=== PATIENT | male | born 1955 | race Caucasian/White ===

== ENCOUNTER 2017-07-22 08:32 | Day surgery (SDC) | payer OTHER ==
[2017-07-22] MEDS ORDERED: LIDOCAINE 4% SOLUTION 50 ML BTL (10:55)
[2017-07-22] MEDS ORDERED: FENTAnyl 50 MCG/ML VIAL (11:54)
[2017-07-22] MEDS ORDERED: MIDAZOLAM 1 MG/ML 2 ML INJ ×2 (11:54)
== END 2017-07-22 16:43 | disposition home or self-care (01) ==
LOC: GIL 08:32
DX: D12.2 Benign neoplasm of ascending colon (principal); K29.30 Chronic superficial gastritis without bleeding; K44.9 Diaphragmatic hernia without obstruction or gangrene; K21.0 Gastro-esophageal reflux disease with esophagitis; K64.4 Residual hemorrhoidal skin tags; K31.7 Polyp of stomach and duodenum
CPT/HCPCS: 43239; 88305; 88312; 88313